=== PATIENT | female | born 1940 | race Two or more races ===

== ENCOUNTER → 2023-05-17 | Outpatient (CLI) | payer OTHER ==
[~2023-05-17] VITALS: Ht 152.4 cm; Wt 53.1 kg
[~2023-05-17] MED LIST: ADENOSINE 45 MG in GIVE UN-DILUTED 0 ML IV STA; LEVO750T40 PO; [UNRECOGNIZED DRUG - CODE] PO
== END | disposition home or self-care (01) ==
LOC: XYW 07:35
PROVIDERS: ATTEND Internal Medicine
DX: R07.9 Chest pain, unspecified (principal); Z86.79 Personal history of other diseases of the circulatory system
CPT/HCPCS: 78452; 93017; A9500; J0153

== ENCOUNTER 2023-06-22 06:56 | Day surgery (SDC) | payer OTHER ==
[~2023-06-22] VITALS: Ht 149.9 cm; Wt 50.8 kg
[~2023-06-22 06:56] MED LIST changes: -ADENOSINE 45 MG in GIVE UN-DILUTED 0 ML IV STA; -LEVO750T40 PO; +METO25TA5 PO
[2023-06-22] MEDS ORDERED: ANGIOMAX 250 MG VIAL IV ONE (08:13)
[2023-06-22] MEDS ORDERED: MIDAZOLAM HCL 2MG/2ML 2ml VIAL (1mg/ml) ONE (08:14)
[2023-06-22] MEDS ORDERED: SODIUM CHL 0.9% 0 ML ONE (08:14)
[2023-06-22] MEDS ORDERED: fentaNYL CITRATE 100 MCG/2 ML VL ONE (08:14)
[2023-06-22] MEDS ORDERED: VERAPAMIL 2.5MG/ML INJ 2ML VIAL IV ONE (08:15)
[2023-06-22] MEDS ORDERED: HEPARIN SODIUM (PORCINE) 5000 UNITS/ML 1ML VIAL ONE (08:15)
[2023-06-22] MEDS ORDERED: FAMOTIDINE (10MG/ML) 2ML VL IV ONE (08:24)
[2023-06-22] MEDS ORDERED: diphenhdrAMINE HCL 50 MG/1 ML VL ONE (08:24)
[2023-06-22] MEDS ORDERED: methylPREDNISolone SOD SUCC 125 MG/2 ML VL ONE (08:24)
[2023-06-22] MEDS ORDERED: PRE5T PO (10:38)
[2023-06-22] MEDS ORDERED: LOSA100T58 PO (10:38)
[2023-06-22] MEDS ORDERED: NITR1SPR TL (10:38)
[2023-06-22] MEDS ORDERED: TRIATAB3 PO (10:38)
[2023-06-22] MEDS ORDERED: HYDR1TAB97 PO (10:39)
== END 2023-06-22 12:39 | disposition home or self-care (01) ==
LOC: CATH 06:56
PROVIDERS: ATTEND Internal Medicine
DX: I27.20 Pulmonary hypertension, unspecified (principal); I65.29 Occlusion and stenosis of unspecified carotid artery; Z88.0 Allergy status to penicillin
CPT/HCPCS: 93458; C1887; C1894; J1200; J1644; J2250; J2930; J3010; J3490; J7030; 99152

== ENCOUNTER 2023-10-05 05:29 | Inpatient (IN) | payer OTHER ==
[~2023-10-05] VITALS: Ht 154.9 cm; Wt 52.9 kg
[~2023-10-05 05:29] MED LIST changes: +HYDR1TAB97 PO; +LOSA100T58 PO; +NITR1SPR TL; +PRE5T PO; +TRIATAB3 PO
[2023-10-05] MEDS: MORPHINE SULFATE INJ 2 MG/ml SYRG IV ONE (08:12)
[2023-10-05] MEDS: ONDANSETRON HCL 4 MG/2 ML VIAL IV ONE (08:12)
[2023-10-05 08:57] LABS: Basophils # (auto) 0 10 ^3/uL (0-0.2); Basophils % (auto) 0.3 % (0.0-2.0); Eosinophils # (auto) 0.2 10 ^3/uL (0-0.8); Hematocrit 36.3 % (36.0-46.0); Hemoglobin 11.9 g/dL (12.2-16.2); Lymphocytes # (auto) 1.5 10 ^3/uL (0.4-5.4); Lymphocytes % (auto) 9.6 % (10.0-50.0); Mean Corpuscular Hemoglobin 32.4 pg (28.0-32.0); Mean Corpuscular Hgb Conc. 32.8 g/dL (32.0-36.0); Mean Corpuscular Volume 98.9 fL (80.0-100.0); Monocytes # (auto) 1.3 10 ^3/uL (0-1.3); Monocytes % (auto) 8.1 % (0.0-12.0); Neutrophils # (auto) 12.9 10 ^3/uL (1.6-8.6); Red Blood Cells 3.67 10^6/uL (4.0-5.20); Red Cell Distribution Width 13.8 % (11.8-14.3)
[2023-10-05 09:13] LABS: INR 1.05 (0.9-1.15)
[2023-10-05 09:20] LABS: Alanine Aminotransferase 13 U/L (7-40); Albumin 3.7 g/dL (3.2-4.8); Alkaline Phosphatase 56 U/L (46-116); Anion Gap 5 (5-15); Aspartate Aminotransferase 23 U/L (13-40); BUN/Creatinine Ratio 25.5 (10.0-20.0); Blood Urea Nitrogen 26 mg/dL (9-23); Calcium 8.7 mg/dL (8.5-10.1); Carbon Dioxide 28 mmol/L (20-30); Chloride 110 mmol/L (98-107); Glucose 90 mg/dL (74-106); Potassium 3.6 mmol/L (3.5-5.1); Sodium 143 mmol/L (136-145)
[2023-10-05 09:21] LABS: Bilirubin, Total 0.5 mg/dL (0.2-1.0); Total Protein 5.1 g/dL (5.7-8.2)
[2023-10-05 09:58] VITALS: PULSE 62; RESP 18; O2SAT 96
[2023-10-05] MEDS: IOHEXOL 350 MG/ML 100ML IJ ONE ×2 (10:34)
[2023-10-05 12:39] LABS: Urine Bacteria NONE SEEN /hpf (None Seen); Urine Blood Negative /uL (Negative); Urine Clarity Clear (Clear); Urine Color Colorless (Yellow); Urine Protein, UAD Negative (Negative); Urine Specific Gravity 1.017 (1.001-1.035); Urine Urobilinogen Normal (Negative); Urine WBC 1 /hpf (0 - 5)
[2023-10-05] MEDS: VANCOMYCIN 1GM/200ML 200 ML IV ONE (13:15)
[2023-10-05] MEDS ORDERED: NITROGLYCERIN 0.4 MG SL TAB SL PRN (13:45)
[2023-10-05] MEDS ORDERED: MORPHINE SULFATE INJ 2 MG/ml SYRG IV PRN (13:45)
[2023-10-05] MEDS: SODIUM CHLORIDE 0.9% 1,000 ML IV SCH (14:00)
[2023-10-05] MEDS ORDERED: ONDANSETRON HCL 4 MG/2 ML VIAL IV PRN (14:00)
[2023-10-05 19:45] VITALS: PULSE 56; RESP 16; O2SAT 99
[2023-10-05] MEDS: HYDROcodone-ACET 5/325MG TAB PO PRN (21:14)
[2023-10-05 21:34] VITALS: BP 141/51; PULSE 65; RESP 18; TEMP 97.3; O2SAT 100
[2023-10-05 22:00] VITALS: BP 141/51; PULSE 65; RESP 18; TEMP 97.6; O2SAT 100
[2023-10-06 05:00] VITALS: BP 154/50; PULSE 54; RESP 16; TEMP 97.4; O2SAT 100
[2023-10-06 05:56] LABS: Basophils # (auto) 0.1 10 ^3/uL (0-0.2); Basophils % (auto) 0.5 % (0.0-2.0); Eosinophils # (auto) 0.2 10 ^3/uL (0-0.8); Eosinophils % (auto) 1.7 % (0.0-7.0); Hematocrit 36.3 % (36.0-46.0); Hemoglobin 11.9 g/dL (12.2-16.2); Lymphocytes # (auto) 1.6 10 ^3/uL (0.4-5.4); Lymphocytes % (auto) 12.7 % (10.0-50.0); Mean Corpuscular Hemoglobin 32.9 pg (28.0-32.0); Mean Corpuscular Hgb Conc. 32.9 g/dL (32.0-36.0); Monocytes # (auto) 1.8 10 ^3/uL (0-1.3); Neutrophils % (auto) 71.1 % (37.0-80.0); Red Blood Cells 3.63 10^6/uL (4.0-5.20); Red Cell Distribution Width 13.7 % (11.8-14.3); White Blood Cell 12.7 10^3/uL (4.4-10.8)
[2023-10-06 06:08] LABS: Chloride 108 mmol/L (98-107); Potassium 3.8 mmol/L (3.5-5.1); Sodium 141 mmol/L (136-145)
[2023-10-06 06:09] LABS: Anion Gap 6 (5-15); Calcium 9.1 mg/dL (8.7-10.4); Carbon Dioxide 27 mmol/L (20-30)
[2023-10-06 06:14] LABS: BUN/Creatinine Ratio 17.9 (10.0-20.0); Blood Urea Nitrogen 15 mg/dL (9-23); Glucose 68 mg/dL (74-106)
[2023-10-06 06:15] LABS: Magnesium 2.1 mg/dL (1.6-2.6)
[2023-10-06 08:00] VITALS: BP 134/67; PULSE 55; PULSE 67; RESP 15; TEMP 97.9; O2SAT 100
[2023-10-06] MEDS: cefTRIAXone 1GM/50ML D5W 50 ML IV SCH (11:30)
[2023-10-06 12:00] VITALS: BP 106/56; PULSE 54; RESP 18; TEMP 98; O2SAT 100
[2023-10-06] MEDS: hydrALAZINE HCL 20 MG/ML VL IV SCH (12:00)
[2023-10-06 16:00] VITALS: BP 116/65; PULSE 58; RESP 18; TEMP 98.3; O2SAT 100
[2023-10-06 20:00] VITALS: PULSE 60; PULSE 64; RESP 18; O2SAT 99
[2023-10-06 22:00] VITALS: BP 147/42; PULSE 60; RESP 18; TEMP 97.8; O2SAT 99
[2023-10-06] MEDS: CYCLOBENZAPRINE HCL 10 MG TAB PO SCH (22:33)
[2023-10-06] MEDS: MECLIZINE HCL 25 MG TAB PO SCH (22:33)
[2023-10-06] MEDS: LOSARTAN POTASSIUM 25 MG TAB PO SCH (22:33)
[2023-10-06] MEDS: LIDOCAINE HCL 5 % TOP OINT 35 GM TOP SCH (22:34)
[2023-10-06] MEDS: METOPROLOL TARTRATE 25 MG TAB PO SCH (22:34)
[2023-10-07] VITALS (8 sets, daily range): BP systolic 90–138; BP diastolic 42–71; PULSE 51–87; RESP 16–18; TEMP 97.6–98; O2SAT 99–100
[2023-10-08] VITALS (7 sets, daily range): BP systolic 90–117; BP diastolic 42–56; PULSE 55–82; RESP 17–22; TEMP 36.1; O2SAT 97–100
[2023-10-08] MEDS: ACETAMINOPHEN 325 MG TAB PO PRN (15:20)
[2023-10-10 14:06] LABS: Vitamin D 25-Hydroxy 51 ng/mL (.); Vitamin D-2 25-Hydroxy <1.0 ng/mL (.); Vitamin D-3 25-Hydroxy 50 ng/mL (.)
== END 2023-10-08 21:00 | DRG 305 ==
LOC: EDBD 05:29 → ER 05:29 → TELE 13:46 → TELE-WESTW 13:46
PROVIDERS: ADMIT Hospitalist; ATTEND Internal Medicine
DX: I16.0 Hypertensive urgency (principal); F03.A0 Unspecified dementia, mild, without behavioral disturbance, psychotic disturbance, mood disturbance, and anxiety; G89.29 Other chronic pain; M62.838 Other muscle spasm; I48.91 Unspecified atrial fibrillation; I10 Essential (primary) hypertension; I34.0 Nonrheumatic mitral (valve) insufficiency; R29.6 Repeated falls; J44.9 Chronic obstructive pulmonary disease, unspecified; I25.10 Atherosclerotic heart disease of native coronary artery without angina pectoris; Z88.0 Allergy status to penicillin; Z91.041 Radiographic dye allergy status; Z90.710 Acquired absence of both cervix and uterus; Z82.49 Family history of ischemic heart disease and other diseases of the circulatory system
CPT/HCPCS: 36415; 70450; 70551; 71101; 73502; 78582; 80048; 80053; 81001; 82306; 82607; 83605; 83735; 84443; 84484; 85025; 85379; 85610; 87040; 93005; 93306; 93970; 96365; 96375; 97110; 97116; 97163; 97530; G0378; J2405

== ENCOUNTER 2023-11-29 11:08 | Inpatient (IN) | payer OTHER, MEDICAID ==
[~2023-11-29] VITALS: Ht 152.4 cm; Wt 47.8 kg
[~2023-11-29 11:08] MED LIST changes: +LOSA-535 PO; -LOSA100T58 PO
[2023-11-29] MEDS: SODIUM CHLORIDE 0.9% 1,000 ML IV ONE (11:15)
[2023-11-29 11:50] LABS: Basophils # (auto) 0 10 ^3/uL (0-0.2); Basophils % (auto) 0.3 % (0.0-2.0); Eosinophils # (auto) 0 10 ^3/uL (0-0.8); Eosinophils % (auto) 0.2 % (0.0-7.0); Hematocrit 38.7 % (36.0-46.0); Lymphocytes # (auto) 1.2 10 ^3/uL (0.4-5.4); Lymphocytes % (auto) 11.6 % (10.0-50.0); Mean Corpuscular Hemoglobin 31.1 pg (28.0-32.0); Mean Corpuscular Hgb Conc. 33.5 g/dL (32.0-36.0); Mean Corpuscular Volume 92.7 fL (80.0-100.0); Monocytes # (auto) 1.3 10 ^3/uL (0-1.3); Monocytes % (auto) 13.3 % (0.0-12.0); Neutrophils # (auto) 7.5 10 ^3/uL (1.6-8.6); Neutrophils % (auto) 74.6 % (37.0-80.0); Red Blood Cells 4.18 10^6/uL (4.0-5.20); Red Cell Distribution Width 13.3 % (11.8-14.3); White Blood Cell 10.1 10^3/uL (4.4-10.8)
[2023-11-29 12:10] LABS: Chloride 96 mmol/L (98-107); Potassium 3.9 mmol/L (3.5-5.1); Sodium 132 mmol/L (136-145)
[2023-11-29 12:11] LABS: Anion Gap 8 (5-15); Calcium 9.5 mg/dL (8.7-10.4); Carbon Dioxide 28 mmol/L (20-30)
[2023-11-29 12:16] LABS: BUN/Creatinine Ratio 18.7 (10.0-20.0); Blood Urea Nitrogen 31 mg/dL (9-23); Glucose 106 mg/dL (74-106)
[2023-11-29 12:33] VITALS: PULSE 82; RESP 20; O2SAT 96
[2023-11-29] MEDS ORDERED: CYCL-837 PO (14:07)
[2023-11-29] MEDS ORDERED: LOSA-533 PO (14:07)
[2023-11-29] MEDS ORDERED: TRAZ-181 PO (14:07)
[2023-11-29] MEDS ORDERED: TRAZ300T16 PO (14:07)
[2023-11-29] MEDS ORDERED: MECL12.586 PO (14:07)
[2023-11-29] MEDS ORDERED: MORPHINE SULFATE INJ 2 MG/ml SYRG IV PRN ×2 (14:45)
[2023-11-29] MEDS ORDERED: ONDANSETRON HCL 4 MG/2 ML VIAL IV PRN (14:45)
[2023-11-29] MEDS ORDERED: NITROGLYCERIN 0.4 MG SL TAB SL PRN (14:45)
[2023-11-29] MEDS: SODIUM CHLORIDE 0.9% 1,000 ML IV SCH (16:09)
[2023-11-29 19:40] VITALS: PULSE 80; RESP 18; O2SAT 98
[2023-11-29] MEDS ORDERED: ONDANSETRON ODT 4 MG TAB PO PRN (20:30)
[2023-11-29] MEDS ORDERED: MORPHINE SULFATE INJ 2 MG/ml SYRG IM PRN (20:30)
[2023-11-30] VITALS (9 sets, daily range): BP systolic 90–153; BP diastolic 55–75; PULSE 74–98; RESP 16–19; TEMP 97.8–98.6; O2SAT 92–96
[2023-11-30 05:38] LABS: Basophils # (auto) 0 10 ^3/uL (0-0.2); Basophils % (auto) 0.5 % (0.0-2.0); Eosinophils # (auto) 0 10 ^3/uL (0-0.8); Eosinophils % (auto) 0.3 % (0.0-7.0); Hematocrit 39.2 % (36.0-46.0); Lymphocytes % (auto) 12.4 % (10.0-50.0); Mean Corpuscular Hgb Conc. 33.3 g/dL (32.0-36.0); Mean Corpuscular Volume 93.1 fL (80.0-100.0); Monocytes # (auto) 1.1 10 ^3/uL (0-1.3); Monocytes % (auto) 13.5 % (0.0-12.0); Neutrophils # (auto) 6.2 10 ^3/uL (1.6-8.6); Neutrophils % (auto) 73.3 % (37.0-80.0); Nucleated Red Blood Cells % 0.1 %; Red Blood Cells 4.21 10^6/uL (4.0-5.20); Red Cell Distribution Width 13.2 % (11.8-14.3); White Blood Cell 8.4 10^3/uL (4.4-10.8)
[2023-11-30 05:55] LABS: Albumin 3.9 g/dL (3.2-4.8); Alkaline Phosphatase 115 U/L (46-116); Anion Gap 8 (5-15); Aspartate Aminotransferase 25 U/L (13-40); BUN/Creatinine Ratio 16.5 (10.0-20.0); Bilirubin, Total 0.8 mg/dL (0.2-1.0); Blood Urea Nitrogen 19 mg/dL (9-23); Calcium 9.6 mg/dL (8.5-10.1); Carbon Dioxide 30 mmol/L (20-30); Chloride 98 mmol/L (98-107); Glucose 86 mg/dL (74-106); Potassium 3.3 mmol/L (3.5-5.1); Sodium 136 mmol/L (136-145); Total Protein 6.5 g/dL (5.7-8.2)
[2023-11-30 05:57] LABS: Alanine Aminotransferase < 9 U/L (7-40)
[2023-11-30 06:49] LABS: Urine Bacteria FEW /hpf (None Seen); Urine Blood Negative /uL (Negative); Urine Clarity Clear (Clear); Urine Color Light-Yellow (Yellow); Urine Hyaline Cast MOD /lpf (0 - 2); Urine Mucus FEW (None Seen); Urine Protein, UAD TRACE (Negative); Urine Specific Gravity 1.015 (1.001-1.035); Urine Urobilinogen Normal (Negative); Urine WBC 44 /hpf (0 - 5)
[2023-11-30] MEDS ORDERED: PROP60CA34 PO (11:52)
[2023-11-30] MEDS: HYDROcodone-ACET 5/325MG TAB PO PRN (12:26)
[2023-11-30] MEDS: LOSARTAN POTASSIUM 25 MG TAB PO ONE (14:11)
[2023-11-30] MEDS: POTASSIUM CHL 20 Meq TABLET PO ONE (14:12)
[2023-11-30] MEDS ORDERED: levoFLOXacin 500 MG TAB PO SCH (16:00)
[2023-11-30] MEDS: LOSARTAN POTASSIUM 25 MG TAB PO SCH (21:31)
[2023-12-01] VITALS (8 sets, daily range): BP systolic 88–142; BP diastolic 49–81; PULSE 71–104; RESP 16–20; TEMP 97.8–98.2; O2SAT 90–94
[2023-12-01] MEDS: levoFLOXacin 250 MG TAB PO SCH (10:08)
[2023-12-01] MEDS: SODIUM CHLORIDE 0.9% 500 ML IV ONE (16:04)
[2023-12-02] VITALS (7 sets, daily range): BP systolic 126–150; BP diastolic 69–88; PULSE 86–111; RESP 16–20; TEMP 97.4–98.4; O2SAT 94–100
[2023-12-02] MEDS: ACETAMINOPHEN 325 MG TAB PO PRN (11:07)
[2023-12-03] VITALS (7 sets, daily range): BP systolic 118–140; BP diastolic 70–78; PULSE 79–102; RESP 14–18; TEMP 97.7–98.3; O2SAT 92–98
[2023-12-04] VITALS (8 sets, daily range): BP systolic 111–147; BP diastolic 59–82; PULSE 69–104; RESP 14–19; TEMP 97.5–98.3; O2SAT 94–100
[2023-12-05] VITALS (7 sets, daily range): BP systolic 129–149; BP diastolic 68–86; PULSE 81–105; RESP 17–19; TEMP 97.4–98.4; O2SAT 94–99
[2023-12-06] VITALS (8 sets, daily range): BP systolic 148–166; BP diastolic 76–81; PULSE 75–101; RESP 16–19; TEMP 97.4–98.1; O2SAT 95–97
[2023-12-07] VITALS (8 sets, daily range): BP systolic 101–146; BP diastolic 49–70; PULSE 81–107; RESP 17–19; TEMP 97.4–98.5; O2SAT 95–97
[2023-12-07] MEDS: MORPHINE SULFATE INJ 2 MG/ml SYRG IV PRN (12:51)
[2023-12-08] VITALS (10 sets, daily range): BP systolic 122–140; BP diastolic 58–71; PULSE 80–93; RESP 16–20; TEMP 97.6–98.1; O2SAT 93–100
[2023-12-09] VITALS (9 sets, daily range): BP systolic 119–148; BP diastolic 47–61; PULSE 70–92; RESP 16–19; TEMP 97.3–98.4; O2SAT 91–97
[2023-12-10 01:00] VITALS: BP 134/59; PULSE 101; RESP 16; TEMP 97.7; O2SAT 93
[2023-12-10 04:38] VITALS: BP 150/72; PULSE 95; RESP 16; TEMP 97.5; O2SAT 95
[2023-12-10 07:30] VITALS: PULSE 83; RESP 17
[2023-12-10 09:00] VITALS: BP 120/50; PULSE 83; RESP 18; TEMP 97.5; O2SAT 96
[2023-12-10 13:00] VITALS: BP 153/62; PULSE 85; RESP 18; TEMP 98; O2SAT 96
[2023-12-10 14:35] LABS: Basophils # (auto) 0.1 10 ^3/uL (0-0.2); Eosinophils # (auto) 0.1 10 ^3/uL (0-0.8); Hematocrit 37.1 % (36.0-46.0); Lymphocytes # (auto) 1.1 10 ^3/uL (0.4-5.4); Lymphocytes % (auto) 15.9 % (10.0-50.0); Mean Corpuscular Hemoglobin 30.4 pg (28.0-32.0); Mean Corpuscular Hgb Conc. 32.4 g/dL (32.0-36.0); Mean Corpuscular Volume 93.9 fL (80.0-100.0); Monocytes # (auto) 0.7 10 ^3/uL (0-1.3); Monocytes % (auto) 10.2 % (0.0-12.0); Neutrophils % (auto) 70.9 % (37.0-80.0); Red Blood Cells 3.95 10^6/uL (4.0-5.20); Red Cell Distribution Width 14.1 % (11.8-14.3)
[2023-12-10 14:46] LABS: Chloride 106 mmol/L (98-107); Potassium 3.7 mmol/L (3.5-5.1); Sodium 142 mmol/L (136-145)
[2023-12-10 14:47] LABS: Anion Gap 5 (5-15); Calcium 9.1 mg/dL (8.5-10.1); Carbon Dioxide 31 mmol/L (20-30)
[2023-12-10 14:52] LABS: BUN/Creatinine Ratio 14.6 (10.0-20.0); Blood Urea Nitrogen 13 mg/dL (9-23); Glucose 118 mg/dL (74-106); Magnesium 1.6 mg/dL (1.6-2.6)
[2023-12-10 16:00] VITALS: BP 113/61; PULSE 80; RESP 18; TEMP 98; O2SAT 95
== END 2023-12-10 16:50 | disposition hospice, inpatient (51) | DRG 640 ==
LOC: EDBD 11:08 → ER 11:08 → TELE 14:50 → TELE-EAST 23:45
PROVIDERS: ADMIT Internal Medicine; ATTEND Internal Medicine
DX: R62.7 Adult failure to thrive (principal); N17.0 Acute kidney failure with tubular necrosis; I10 Essential (primary) hypertension; I34.0 Nonrheumatic mitral (valve) insufficiency; G89.4 Chronic pain syndrome; F03.90 Unspecified dementia, unspecified severity, without behavioral disturbance, psychotic disturbance, mood disturbance, and anxiety; I25.10 Atherosclerotic heart disease of native coronary artery without angina pectoris; J44.9 Chronic obstructive pulmonary disease, unspecified; R79.89 Other specified abnormal findings of blood chemistry; Z66 Do not resuscitate; Z90.710 Acquired absence of both cervix and uterus; Z68.20 Body mass index [BMI] 20.0-20.9, adult; Z82.5 Family history of asthma and other chronic lower respiratory diseases; Z82.49 Family history of ischemic heart disease and other diseases of the circulatory system; Z82.0 Family history of epilepsy and other diseases of the nervous system; Z88.0 Allergy status to penicillin; Z51.5 Encounter for palliative care
CPT/HCPCS: 36415; 74176; 76705; 80048; 80053; 81001; 83735; 84484; 85025; 93005; 96360; 96361; 97110; 97116; 97163; 97530; G0378; Q0162